=== PATIENT | male | born 1990 | race African-American/Black ===

== ENCOUNTER 2019-01-20 09:58 | Emergency (ER) | payer MEDICAID, OTHER ==
[~2019-01-20] VITALS: Ht 170.2 cm; Wt 59.0 kg
[2019-01-20 10:34] VITALS: BP 114/79
== END 2019-01-20 13:35 | disposition left against medical advice (07) ==
LOC: ER 10:45
DX: R10.13 Epigastric pain (principal); R11.10 Vomiting, unspecified; Z53.21 Procedure and treatment not carried out due to patient leaving prior to being seen by health care provider